=== PATIENT | male | born 1950 | race Caucasian/White ===

== ENCOUNTER → 2017-07-21 | Outpatient (CLI) | payer MEDICARE, OTHER ==
[2017-07-21 09:47] LABS: HEMATOCRIT 45.3 % (39.0-53.0); HEMOGLOBIN 15.4 g/dL (13.0-17.5)
[2017-07-21 09:52] LABS: ALBUMIN 4.1 g/dL (3.4-5.0); CALCIUM 9.5 mg/dL (8.5-10.1); CREATININE 2.2 mg/dL (0.7-1.3); GFR 30.2; MAGNESIUM 2.1 mg/dL (1.8-2.4); PHOSPHORUS 3.8 mg/dL (2.6-4.7); POTASSIUM 4.2 mmol/L (3.5-5.1)
[2017-07-21 17:08] LABS: MICRO CREAT RATIO <50.8 mg/g creat (0.0-30.0); MICROALB RD UR <12.0 ug/mL (Not Estab.)
== END | disposition home or self-care (01) ==
LOC: LAB 09:02
PROVIDERS: ATTEND Internal Medicine Nephrology
DX: I12.9 Hypertensive chronic kidney disease with stage 1 through stage 4 chronic kidney disease, or unspecified chronic kidney disease (principal); E11.21 Type 2 diabetes mellitus with diabetic nephropathy; N18.3 Chronic kidney disease, stage 3 (moderate); N14.0 Analgesic nephropathy; N20.0 Calculus of kidney; N28.1 Cyst of kidney, acquired; Z68.25 Body mass index [BMI] 25.0-25.9, adult
CPT/HCPCS: 36415; 80069; 82043; 82570; 83735; 85014; 85018